=== PATIENT | male | born 1995 | race Caucasian/White ===

== ENCOUNTER → 2017-01-04 | Outpatient (CLI) | payer OTHER ==
[~2017-01-04] VITALS: Ht 177.8 cm; Wt 52.7 kg
[~2017-01-04] MED LIST: PRILOSEC 20MG20 MG PO
[2017-01-04 09:35] VITALS: BP 116/61
[2017-01-04 09:45] LABS: HEMATOCRIT 45.9 % (36.0-47.0); MEAN CELL VOLUME 85 fl (78-95); MEAN CORPUSCULAR HEMOGLOBIN 30 pg (26-32); MEAN CORPUSCULAR HGB CONC 35 g/dL (33-37); MEAN PLATELET VOLUME 9.4 fl (7.4-10.4); PLATELET COUNT 302 K/mm3 (130-400); RED BLOOD COUNT 5.42 M/mm3 (4.20-5.60); RED CELL DISTRIBUTION WIDTH 12.4 % (11.5-14.5); WHITE BLOOD COUNT 12.2 K/mm3 (4.8-10.8)
[2017-01-04 09:48] LABS: LYMPHOCYTE 7 % (20-51); MONOCYTE 7 % (1-10); NEUTROPHILS 86 % (42-75)
[2017-01-04 09:52] LABS: BUN/CREATININE RATIO 17.8 (6.0-26.0); CALCIUM 10.4 mg/dL (8.4-10.2); POTASSIUM 3.8 mmol/L (3.6-5.0); TOTAL BILIRUBIN 0.8 mg/dL (0.2-1.3); TOTAL PROTEIN 8.7 g/dL (6.3-8.2)
[2017-01-04 11:27] VITALS: BP 121/80
== END ==
LOC: AMSURD 09:23
PROVIDERS: Nurse Practitioner Primary Care
DX: R11.2 Nausea with vomiting, unspecified (principal)
CPT/HCPCS: J2405; J7030

== ENCOUNTER → 2017-01-05 | Outpatient (CLI) | payer OTHER ==
[2017-01-04 11:27] VITALS: BP 121/80
[2017-01-05 08:25] LABS: EOS # 0.1 (0.04-0.40); EOS % 0.7 % (0.0-4.0); HEMATOCRIT 42.9 % (36.0-47.0); HEMOGLOBIN 14.8 g/dL (12.5-16.1); LYMPH# 2.7 (1.50-4.00); MEAN CELL VOLUME 87 fl (78-95); MEAN CORPUSCULAR HEMOGLOBIN 30 pg (26-32); MEAN CORPUSCULAR HGB CONC 35 g/dL (33-37); MEAN PLATELET VOLUME 9.2 fl (7.4-10.4); MONO # 0.8 (0.20-0.80); NEU # 4.9 (1.40-6.50); PLATELET COUNT 252 K/mm3 (130-400); RED BLOOD COUNT 4.91 M/mm3 (4.20-5.60); RED CELL DISTRIBUTION WIDTH 12.7 % (11.5-14.5); WHITE BLOOD COUNT 8.4 K/mm3 (4.8-10.8)
== END ==
LOC: LAB 08:11
PROVIDERS: Nurse Practitioner Primary Care
DX: R11.2 Nausea with vomiting, unspecified (principal)